=== PATIENT | female | born 1975 | race Caucasian/White ===

== ENCOUNTER → 2017-02-20 | Outpatient (CLI) | payer SELFPAY ==
[~2017-02-20] MED LIST: B12,B-12,B 12500 MC1 PO; CIPRO500 MG PO; D-1000 185 MG-11 TAB PO; FLOMAX0.4 MG PO; PREDNISONE10 MG PO
[2017-02-20 14:32] LABS: BILIRUBIN NEGATIVE (NEGATIVE); BLOOD 3+ (NEGATIVE); CLARITY CLOUDY (CLEAR); COLOR YELLOW (YELLOW); GLUCOSE NEGATIVE (NEGATIVE); KETONE TRACE (NEGATIVE); LEUKO ESTERASE 1+ (NEGATIVE); NITRITE NEGATIVE (NEGATIVE); PROTEIN 2+ (NEGATIVE); SPECIFIC GRAVITY >= 1.030 (1.005-1.030); UROBILINOGEN 0.2 E.U./dl (0.2-1.0)
[2017-02-20 14:43] LABS: BACTERIA 2+; RBC TNTC rbc/hpf (0-2)
== END | disposition home or self-care (01) ==
LOC: LAB 12:52
PROVIDERS: Urology
DX: N20.0 Calculus of kidney (principal)

== ENCOUNTER → 2017-02-26 | Day surgery (SDC) | payer SELFPAY ==
[~2017-02-26] VITALS: Ht 162.5 cm; Wt 72.6 kg
[~2017-02-26] MED LIST changes: +HYDROCODONE BIT1 T11 PO; +NORCO 5-325 TA1 EACH PO
--- NOTE | ~2017-02-26 | O ---
[place], [place] OPERATIVE NOTE [id number] UNIT #: [id number] ROOM: DOCTOR: SHARLA ELENA MD BIRTHDATE: [birth year] DOS: 02/26/2017 PREOPERATIVE DIAGNOSIS: Status post left ureteral calculus extracorporeal shock wave lithotripsy. PROCEDURE: Cystoscopy and removal of ureteral stent. DESCRIPTION OF PROCEDURE: After obtaining satisfactory sedation, the patient was placed in lithotomy position. Genitalia was prepped and draped in sterile manner. A 21 ACMI scope placed into the bladder, stent was seen coming through the left ureteral orifice, grasped with a grasper and removed without any difficulty. The patient was then recovered from sedation and transferred to recovery room in satisfactory condition. SHARLA ELENA MD CM:OPRECORD:OPERATIVE NOTE [id number] SHARLA ELENA MD 03/26/17 1543 interface
[2017-02-26 08:00] VITALS: BP 109/73
[2017-02-26 10:33] VITALS: BP 112/70
[2017-02-26 10:48] VITALS: BP 121/80
[2017-02-26 11:03] VITALS: BP 113/82
== END | disposition home or self-care (01) ==
LOC: SDC 02-20 12:30
DX: Z46.6 Encounter for fitting and adjustment of urinary device (principal); K21.9 Gastro-esophageal reflux disease without esophagitis; F32.9 Major depressive disorder, single episode, unspecified; F17.210 Nicotine dependence, cigarettes, uncomplicated; Z82.49 Family history of ischemic heart disease and other diseases of the circulatory system; Z83.3 Family history of diabetes mellitus; Z80.9 Family history of malignant neoplasm, unspecified

== ENCOUNTER → 2017-03-13 | Outpatient (CLI) | payer SELFPAY | END | disposition home or self-care (01) | LOC: RAD 09:40 | DX: N20.0 Calculus of kidney (principal) ==

== ENCOUNTER → 2017-03-14 | Day surgery (SDC) | payer SELFPAY ==
[~2017-03-14] VITALS: Ht 162.5 cm; Wt 72.6 kg
--- NOTE | ~2017-03-14 | O ---
[place], [place] OPERATIVE NOTE NAME: SRIKANTH [facility] #: [id number] UNIT #: [id number] ROOM: DOCTOR: SHARLA ELENA MD BIRTHDATE: [birth year] DOS: 03/14/2017 PREOPERATIVE DIAGNOSIS: Left renal calculus status post ESWL. POSTOPERATIVE DIAGNOSIS: Left renal calculus status post ESWL. PROCEDURE: Cystoscopy and removal of left ureteral stent. FINDINGS: A KUB taken preop showed the ureteral stent in the left collecting system, with no evidence of any calcium deposits on the renal or bladder loop. DESCRIPTION OF PROCEDURE: After obtaining satisfactory sedation, the patient was placed in the supine lithotomy position. Genitalia was prepped and draped in the sterile manner. A 21 ACMI scope was placed into the bladder, stent was seen coming through the left orifice, it was grasped and removed without any difficulty. The patient tolerated the procedure very well. She was then recovered from sedation and transferred to recovery room in satisfactory condition. SHARLA ELENA MD CM:OPRECORD:OPERATIVE NOTE [id number] SHARLA ELENA MD 03/14/17 1552 interface
[2017-03-14 12:53] VITALS: BP 115/69
[2017-03-14 13:22] VITALS: BP 115/74
[2017-03-14 13:32] VITALS: BP 116/82
[2017-03-14 13:52] VITALS: BP 122/80
== END | disposition home or self-care (01) ==
LOC: SDC 03:02
DX: Z46.6 Encounter for fitting and adjustment of urinary device (principal); K21.9 Gastro-esophageal reflux disease without esophagitis; F32.9 Major depressive disorder, single episode, unspecified; Z98.51 Tubal ligation status; F17.210 Nicotine dependence, cigarettes, uncomplicated; Z82.49 Family history of ischemic heart disease and other diseases of the circulatory system; Z83.3 Family history of diabetes mellitus; Z80.9 Family history of malignant neoplasm, unspecified

== ENCOUNTER → 2019-03-05 | Outpatient (CLI) | payer BC ==
[2019-03-05 09:19] LABS: HEMOGLOBIN 14.5 g/dl (12.0-16.0); MEAN CELL VOLUME 95.9 fl (81.0-99.0); MEAN CORPUSCULAR HGB 31.6 pg (27.0-31.0); MEAN PLATELET VOLUME 10.2 fl (9.6-12.3); RED BLOOD COUNT 4.59 10*6/uL (4.10-5.10); RED CELL DISTRI WIDTH 12.7 % (0-14.5); WHITE BLOOD COUNT 8.1 10*3/uL (4.8-10.8)
[2019-03-05 09:40] LABS: ALBUMIN 3.4 gm/dl (3.1-4.5); BUN 11 mg/dl (7-24); CHLORIDE 110 mmol/L (98-107); POTASSIUM 3.9 mmol/L (3.5-5.1); SODIUM 140 mmol/L (136-145)
[2019-03-05 09:51] LABS: ALKALINE PHOSPHATASE 91 U/L (45-117); CHOLESTEROL 127 mg/dL (<200); CREATININE 0.96 mg/dL (0.55-1.02); FREE T4 0.97 ng/dl (0.76-1.46); HDL CHOLESTEROL 51 mg/dl (40-60); LDL CHOLESTEROL 57 mg/dL (9-159); SGOT/AST 8 IU/L (3-35); SGPT/ALT 14 U/L (12-78); THYROID STIM HORMONE (HS) 0.533 uIU/ml (0.358-4.75); TOTAL PROTEIN 6.3 gm/dL (6.4-8.2); TRIGLYCERIDES 93 mg/dl (<150); VLDL CHOLESTEROL 19 mg/dL (6-40)
== END | disposition home or self-care (01) ==
LOC: LAB 08:47
PROVIDERS: Family Medicine
DX: E78.00 Pure hypercholesterolemia, unspecified (principal); E55.9 Vitamin D deficiency, unspecified; K21.9 Gastro-esophageal reflux disease without esophagitis; F41.1 Generalized anxiety disorder; R53.83 Other fatigue; E74.00 Glycogen storage disease, unspecified; F17.200 Nicotine dependence, unspecified, uncomplicated

== ENCOUNTER 2019-10-01 09:49 | Emergency (ER) | payer BC ==
[~2019-10-01] VITALS: Ht 162.5 cm; Wt 70.3 kg
[2019-10-01] MEDS ORDERED: PREDNISONE50 MG PO (11:50)
[2019-10-01] MEDS ORDERED: VIBRAMYCIN100 MG PO (11:50)
== END 2019-10-01 11:53 | disposition home or self-care (01) ==
LOC: ED 09:49
DX: S30.861A Insect bite (nonvenomous) of abdominal wall, initial encounter (principal); J20.9 Acute bronchitis, unspecified; K21.9 Gastro-esophageal reflux disease without esophagitis; F17.200 Nicotine dependence, unspecified, uncomplicated; W57.XXXA Bitten or stung by nonvenomous insect and other nonvenomous arthropods, initial encounter; Y93.89 Activity, other specified; Y92.89 Other specified places as the place of occurrence of the external cause; Y99.8 Other external cause status

== ENCOUNTER 2021-04-15 15:27 | Emergency (ER) | payer BC ==
[~2021-04-15] VITALS: Ht 162.5 cm; Wt 74.8 kg
[~2021-04-15 15:27] MED LIST changes: +PREDNISONE50 MG PO; +VIBRAMYCIN100 MG PO
== END 2021-04-15 15:55 | disposition home or self-care (01) ==
LOC: ED 15:27
DX: H10.9 Unspecified conjunctivitis (principal); Z79.899 Other long term (current) drug therapy; Z98.51 Tubal ligation status; Z98.890 Other specified postprocedural states

== ENCOUNTER → 2022-05-11 | Outpatient (CLI) | payer OTHER ==
[2022-05-11 11:09] LABS: BASO % 0.6 % (0.0-1.0); EOS # 0.2 10*3/uL (0.0-0.4); EOS % 2.5 % (1.0-4.0); HEMATOCRIT 44.5 % (37.0-47.0); LYMPH # 2.1 10*3/uL (1.3-4.4); LYMPH % 30.5 % (27.0-41.0); MEAN CELL VOLUME 94.5 fl (81.0-99.0); MEAN CORPUSCULAR HGB 31.8 pg (27.0-31.0); MEAN CORPUSCULAR HGB CONC 33.7 g/dl (33.0-37.0); MEAN PLATELET VOLUME 9.4 fl (9.6-12.3); MONO # 0.5 10*3/uL (0.1-1.0); NEUT % 59.1 % (47.0-73.0); PLATELET COUNT AUTOMATED 218 10*3/uL (130-400); RED BLOOD COUNT 4.71 10*6/uL (4.10-5.10); RED CELL DISTRI WIDTH 12.5 % (0-14.5); WHITE BLOOD COUNT 6.8 10*3/uL (4.8-10.8)
[2022-05-11 11:37] LABS: BUN 16 mg/dl (7-24); CHLORIDE 110 mmol/L (98-107); CHOLESTEROL 145 mg/dL (<200); IRON 106 ug/dL (50-170); POTASSIUM 4.2 mmol/L (3.5-5.1); SGOT/AST 12 IU/L (3-35); SGPT/ALT 16 U/L (12-78); SODIUM 140 mmol/L (136-145); TOTAL PROTEIN 7.1 gm/dL (6.4-8.2); TRIGLYCERIDES 60 mg/dl (<150)
[2022-05-11 11:44] LABS: ALKALINE PHOSPHATASE 92 U/L (45-117); LDL CHOLESTEROL 72 mg/dL (9-159); THYROID STIM HORMONE (HS) 0.755 uIU/ml (0.358-4.75); THYROXINE (T4) TOTAL 8.6 ug/dl (4.8-13.9)
[2022-05-11 12:53] LABS: VITAMIN D, 25-HYDROXY 13.5 ng/mL (30-100)
== END | disposition home or self-care (01) ==
LOC: LAB 10:57
PROVIDERS: ATTEND Family Medicine
DX: Z13.6 Encounter for screening for cardiovascular disorders (principal); Z13.1 Encounter for screening for diabetes mellitus; Z00.00 Encounter for general adult medical examination without abnormal findings; R53.83 Other fatigue

== ENCOUNTER 2022-10-24 13:41 | Emergency (ER) | payer SELFPAY ==
[~2022-10-24] VITALS: Wt 72.6 kg
[2022-10-24 17:33] LABS: BASO % 0.9 % (0.0-1.0); EOS # 0.1 10*3/uL (0.0-0.4); EOS % 2.3 % (1.0-4.0); LYMPH % 56.3 % (27.0-41.0); MEAN CELL VOLUME 94.2 fl (81.0-99.0); MEAN CORPUSCULAR HGB 30.8 pg (27.0-31.0); MEAN CORPUSCULAR HGB CONC 32.7 g/dl (33.0-37.0); MEAN PLATELET VOLUME 9.9 fl (9.6-12.3); MONO # 0.3 10*3/uL (0.1-1.0); MONO % 9.7 % (3.0-9.0); NEUT # 1.1 10*3/uL (2.3-7.9); NEUT % 30.8 % (47.0-73.0); PLATELET COUNT AUTOMATED 187 10*3/uL (130-400); RED CELL DISTRI WIDTH 12.6 % (0-14.5); WHITE BLOOD COUNT 3.5 10*3/uL (4.8-10.8)
[2022-10-24 18:08] LABS: ALKALINE PHOSPHATASE 81 U/L (46-116); BUN 12 mg/dl (9-23); CHLORIDE 107 mmol/L (98-107); CREATININE 0.84 mg/dL (0.55-1.02); POTASSIUM 4.1 mmol/L (3.4-5.1); SGPT/ALT 8 U/L (10-49); SODIUM 140 mmol/L (136-145); TOTAL PROTEIN 7.1 gm/dL (6.0-8.0)
[2022-10-24] MEDS ORDERED: PROVENTIL HFA6.7 GM INH (18:27)
[2022-10-24] MEDS ORDERED: PREDNISONE20 M1 PO (18:27)
== END 2022-10-24 19:35 | disposition home or self-care (01) ==
LOC: ED 13:41
PROVIDERS: Physician Assistant
DX: U07.1 COVID-19 (principal); Z79.899 Other long term (current) drug therapy